=== PATIENT | female | born 1930 | race Caucasian/White ===

== ENCOUNTER 2016-06-11 13:45 | Outpatient (CLI) | payer OTHER ==
--- NOTE | 2016-06-11 16:04 | DIAGNOSTIC IMAGING REPORT ---
PROCEDURE: US ART LOWER EXT WITH CAROLA-B/L INDICATION: Right toe erythema and pain. Nonsmoker. No history of diabetes. TECHNIQUE: Preexercise ABIs were performed. The patient was unable to exercise for postexercise ABIs. Subsequently, color Doppler duplex imaging of the lower extremities was performed. COMPARISON: None. FINDINGS: RIGHT LOWER EXTREMITY: ABIs: Pre exercise ABIs are normal (posterior tibial 1.1, dorsalis pedis 1.1). VESSELS: Moderate calcified atheromatous plaque. RIGHT LOWER EXTREMITY PEAK SYSTOLIC VELOCITIES: Common femoral artery: Triphasic 123 cm/second. Profunda femoral artery: Triphasic 77 cm/second. Proximal superficial femoral artery: Triphasic 105 cm/second. Mid superficial femoral artery: Triphasic 130 cm/second. Distal superficial femoral artery: Triphasic 91 cm/second. Popliteal artery: Biphasic 76 cm/second. Proximal posterior tibial artery: Triphasic 106 cm/second. Proximal anterior tibial artery: Biphasic 56 cm/second. Peroneal artery: N/A cm/second. Distal posterior tibial artery: Triphasic 78 cm/second. Dorsalis pedis artery: Biphasic 43 cm/second. LEFT LOWER EXTREMITY: ABIs: Pre exercise ABIs are normal (posterior tibial 1.2, dorsalis pedis 1.1). VESSELS: Moderate calcified atheromatous plaque. LEFT LOWER EXTREMITY PEAK SYSTOLIC VELOCITIES: Common femoral artery: Triphasic 133 cm/second. Profunda femoral artery: Biphasic 80 cm/second. Proximal superficial femoral artery: Triphasic 146 cm/second. Mid superficial femoral artery: Triphasic 125 cm/second. Distal superficial femoral artery: Triphasic 77 cm/second. Popliteal artery: Triphasic 64 cm/second. Proximal posterior tibial artery: Biphasic 63 cm/second. Proximal anterior tibial artery: Biphasic 61 cm/second. Peroneal artery: N/A cm/second. Distal posterior tibial artery: Triphasic 52 cm/second. Dorsalis pedis artery: Biphasic 85 cm/second. IMPRESSION: 1. Moderate calcified plaque of bilateral lower extremity arterial system. 2. No evidence of significant arterial insufficiency with biphasic / triphasic flow throughout the lower extremity arterial system. 3. Findings discussed with Dr. Knowles.
== END 2016-06-11 23:00 ==
LOC: US SRH 13:45
DX: I70.201 Unspecified atherosclerosis of native arteries of extremities, right leg (principal); I70.202 Unspecified atherosclerosis of native arteries of extremities, left leg